=== PATIENT | male | born 1950 | race Caucasian/White ===

== ENCOUNTER 2023-05-01 07:31 | Outpatient (CLI) | payer MEDICARE, SELFPAY ==
--- NOTE | ~2023-05-01 | XR_ITS ---
XR abdomen/kub 1V DATE: 05/01/2023 07:54 INDICATION: Gross hematuria TECHNIQUE: 2 supine AP views COMPARISON: 05/01/2023 CT abdomen pelvis noncontrast examination FINDINGS: There is no evidence of bowel obstruction. No urinary tract calcifications are detected. Th e psoas shadows are intact. No visceromegaly is identified. There is very severe osteoarthritic change at the left hip with obliteration of joint space and sever e hypertrophic spurring of the acetabulum and femoral head. Moderately prominent right hip osteoarthr itis. IMPRESSION: Bilateral hip osteoarthritis, particularly severe on the left Nonspecific abdomen Reviewed, dictated and finalized at [facility]. Reviewed, dictated and finalized at location B.
--- NOTE | ~2023-05-01 | CT_ITS ---
EXAMINATION: CT abdomen pelvis wo/w con DATE: 05/01/2023 08:31 INDICATION: Gross hematuria TECHNIQUE: Computed tomography (CT) of the abdomen and pelvis was performed without and subsequently with 130 CC Omnipaque 350 intravenous contrast. Automated exposure control and iterative reconstructi on technique were employed. Exam dose: 2249.23 mGy-cm total exam DLP. COMPARISON: 05/01/2023 KUB FINDINGS: Left lower lobe calcified pulmonary granuloma, calcified right hilar node and multiple calc ified hepatic and splenic granulomas consistent with old granulomatous disease. Peripherally calcified approximately 2.6 cm gallstone. Additional stones and/or sludge are noted in t he gallbladder. No gallbladder wall thickening or pericholecystic fluid or fat stranding is noted. No bile duct or pancreatic duct dilatation. There is minimal punctate calcification of the uncinate pro cess of the pancreas which may be due to chronic pancreatitis. No hepatic, splenic, pancreatic, adrenal or renal space-occupying mass lesion is detected. A few very small renal probable cysts are suggested. Normal morphology of the adrenal glands. No urinary tract calculus or hydroureteronephrosis. There is asymmetric soft tissue thickening of the right anterolateral urinary bladder wall, measuring up to 9 mm depth. Cystoscopic evaluation in the biopsy are suggested, particularly with a history of gross hematuria. There is prostate enlargement. Septated prominent right hydrocele. There is atherosclerotic calcification but normal caliber of the abdominal aorta. There are atheroscl erotic calcifications at the origins of the celiac, superior mesenteric and right renal arteries. The re are 2 left renal arteries originating from the abdominal aorta. No intraperitoneal or retroperitoneal or pelvic mass lesion or adenopathy or ascites. Normal appendix. There is diverticulosis of the colon, primarily in the sigmoid area; no CT evidence of diverticulitis . There is a prominent amount of fecal material throughout the rectum and colon but no bowel obstruct ion, bowel wall thickening, pneumatosis or intraperitoneal free air. Moderate right and very severe left hip osteoarthritis. No suspicious osteolytic or osteoblastic lesions are noted. IMPRESSION: Asymmetric soft tissue thickening of the urinary bladder wall anterolaterally on the rig ht; consider cystoscopy with biopsy as clinically appropriate Prostate enlargement Cholelithiasis Minimal pancreatic calcification, possibly due to mild chronic pancreatitis Diverticulosis of the colon; no evidence of diverticulitis Normal appendix Bilateral hip osteoarthritis, particularly severe on the left Septated right hydrocele Reviewed, dictated and finalized at [facility]. Reviewed, dictated and finalized at location B. IMPRESSION: Asymmetric soft tissue thickening of the urinary bladder wall ante rolaterally on the right; consider cystoscopy with biopsy as clinically appropr iate Prostate enlargement Cholelithiasis Minimal pancreatic calcification, possibly due to mild chronic pancreatitis Diverticulosis of the colon; no evidence of diverticulitis Normal appendix Bilateral hip osteoarthritis, particularly severe on the left Septated right hydrocele
[2023-05-01 08:09] LABS: Estimated Glomerular Filt Rate > 60
== END 2023-05-01 07:32 | disposition home or self-care (01) ==
PROVIDERS: PCP Internal Medicine; Visit Provider Urology
DX: R31.0 Gross hematuria (principal); N40.0 Benign prostatic hyperplasia without lower urinary tract symptoms; K80.20 Calculus of gallbladder without cholecystitis without obstruction; K57.30 Diverticulosis of large intestine without perforation or abscess without bleeding; M16.0 Bilateral primary osteoarthritis of hip; N43.3 Hydrocele, unspecified
CPT/HCPCS: 74018; 74178; Q9967

== ENCOUNTER 2023-11-06 07:57 | Outpatient (CLI) | payer MEDICARE, SELFPAY ==
[2023-11-06 08:34] LABS: Anion Gap 10 mmol/L (4-12); Blood Urea Nitrogen 15 mg/dL (9-20); Calcium 9.2 mg/dL (8.4-10.2); Carbon Dioxide 23 mmol/L (22-30); Chloride 106 mmol/L (98-107); Estimated Glomerular Filt Rate > 60; Glucose 162 mg/dL (65-110); Potassium 4.6 mmol/L (3.4-5.0); Sodium 139 mmol/L (137-145)
== END 2023-11-06 07:58 | disposition home or self-care (01) ==
LOC: ANHSURGERY 08:02
PROVIDERS: Anesthesiology; PCP Internal Medicine; Visit Provider Urology
DX: Z01.818 Encounter for other preprocedural examination (principal); E11.9 Type 2 diabetes mellitus without complications; R97.20 Elevated prostate specific antigen [PSA]
CPT/HCPCS: 36415; 80048; 87086

== ENCOUNTER 2023-11-14 02:08 | Day surgery (SDC) | payer MEDICARE, SELFPAY ==
[2023-11-02 11:25] VITALS: BMI 33.2
--- NOTE | 2023-11-02 11:51 | PC.NURSE ---
Report to the Outpatient Waiting Room, entrance under the green pavilion located off [facility], at time __7:15AM on date ___11/14/23____. Planned Procedure Time: __9:15AM . Time changes happen often and if your time is changed the preop area will call you the afternoon before. - You and your visitor will be asked to self-screen and do not enter if you have any COVID symptoms. - A mask is optional within the hospital at this time. Patients may have clear liquids (water, carbonated beverages, clear teas, apple juice) until 3 hours prior to surgery with a maximum of 20 ounces. - No food from midnight until time of surgery. Take the following medications with a SIP of water the morning of surgery: ___AMLODIPINE DO NOT STOP ANY OF YOUR OTHER PRESCRIPTION MEDICATIONS PRIOR TO SURGERY ?EXCEPT THE FOLLOWING Medications to discontinue per physician ____HOLD PLAVIX, ASPIRIN & FISH OIL 7 DAYS PRE-OP PER DR CHEN- LAST DOSE 11/06/23 Please no make-up, nail english, hairspray, perfume, deodorant, or body powder the day of surgery. No jewelry (including any body piercings) or valuables the day of surgery, leave them at home. Please take a shower or bath the night before, or the morning of, surgery with an antibacterial soap. Wear comfortable, loose fitting clothing. - Jewelry must be removed prior to entering the operating room. Rings and piercings that are not removed may be cut off. - The hospital will not accept responsibility for valuables. - Please leave all valuables, including medications, at home the day of surgery. If you are going home after surgery, a licensed driver helper must drive you home. - NO public transportation without another adult if you receive anesthesia. - We recommend that an adult stay with you for 24 hours following discharge. - We also recommend that you do not drive, make important decision, drink alcoholic beverages, or take any drugs that were not prescribed by your health care provider for at least 24 hours after your discharge time. Follow any additional instructions given to you from your surgeon. If you or anyone in your household have experienced Covid symptoms in the past week, please notify your surgeon or the nurse liaison at the phone number below for possible testing. Telephone instructions given to ___PATIENT and asked if any additional questions and then verbalized understanding. Patient advised to call surgeon office or pre surgery nurse liaison [phone] if any additional questions.
[2023-11-14 06:43] VITALS: BP 178/78; PULSE 60; RESP 18; TEMP 36.1; O2SAT 98
[2023-11-14 07:12] LABS: Glucose Point of Care 190 mg/dl (65-105)
--- NOTE | 2023-11-14 07:16 | WPDHPUPDATE1 ---
History and Physical Update Update Date/Time: 11/14/23 07:16 History and Physical has been reviewed, including an updated exam of the patient. There are NO changes in the patient's condition. Risks, benefits, and alternatives have been discussed and questions answered. Patient agrees to proceed with procedure. Proceed with uronav us and prostate biopsy
--- NOTE | 2023-11-14 07:20 | PM.IMHP ---
H&P: HPI History of Present Illness Date/Time: 11/14/23 07:20 Chief Complaint: elevated psa Narrative: 73 yr old male with elevated psa. Review of Systems Review of Systems: All systems reviewed & are unremarkable except as noted in HPI and below [facility]LY [facility] Social History Social History Smoking packs per day: 4 Smoking cigarettes per day: 80.0 Years smoked: 30 Smoking pack-years: 120.00 Smoking status: Former smoker Tobacco type: cigarettes Smoking end date: 01/01/08 Alcohol intake: former Alcohol use details: QUIT 2010 AFTER HAVING A CVA Living arrangements: other Additional living arrangements comments: GIRLFRIEND Spiritual care concerns: No Meds Home Medications and Allergies Home Medications Medication Instructions Recorded Confirmed Type amlodipine 5 mg tablet 5 mg PO QAM 11/02/23 11/14/23 History aspirin 81 mg tablet,delayed 81 mg PO DAILY 11/02/23 11/14/23 History release clopidogrel 75 mg tablet 75 mg PO QAM 11/02/23 11/14/23 History ezetimibe 10 mg tablet 10 mg PO QAM 11/02/23 11/14/23 History glimepiride 2 mg tablet 2 mg PO QAM 11/02/23 11/14/23 History lisinopril 40 mg tablet 40 mg PO QAM 11/02/23 11/14/23 History metformin 500 mg tablet,extended 1,000 mg PO QAM 11/02/23 11/14/23 History release 24 hr omega 4-msk-jys-fish oil 1,000 mg 1 cap PO DAILY 11/02/23 11/14/23 History (120 mg-180 mg) capsule (Fish Oil) simvastatin 20 mg tablet 20 mg PO DAILY 11/02/23 11/14/23 History Allergies Allergy/AdvReac Type Severity Reaction Status Date / Time No Known Allergies Allergy Verified 11/14/23 07:18 Exam Const: General: cooperative Resp: Effort & Inspection: normal respiratory effort Cardio: Rate: regular rate Rhythm: regular rhythm Assessment and Plan Assessment and plan (1) Elevated PSA: Code(s): R97.20 - Elevated prostate specific antigen [PSA] Status: Acute Assessment and Plan: Proceed with uronav us and prostate biopsy
--- NOTE | 2023-11-14 08:01 | P.PNAN_ITS ---
Anes - Initial Pre Proc Eval Procedure: Operation Date: 11/14/23 08:30 Proposed Procedures p Trans Rectal Ultrasound Fusion Guided Prostate Biopsy - Sukumar Sosa MD Date/Time: 11/14/23 08:01 Surgeon: Sukumar Sosa MD Pre Op Diagnosis: elevated PSA Patient Data Age: 73 Gender: M Height: 1.75 m Weight: 101 kg Last Vital Signs Temp 97.0 F L 11/14/23 06:43 Pulse 60 11/14/23 06:43 Resp 18 11/14/23 06:43 BP 178/78 H 11/14/23 06:43 Pulse Ox 98 11/14/23 06:43 O2 Del Method Room Air 11/14/23 06:43 Allergies Allergy/AdvReac Type Severity Reaction Status Date / Time No Known Allergies Allergy Verified 11/14/23 07:18 Home Medications Medication Instructions Recorded Confirmed Type amlodipine 5 mg tablet 5 mg PO QAM 11/02/23 11/14/23 History aspirin 81 mg tablet,delayed 81 mg PO DAILY 11/02/23 11/14/23 History release clopidogrel 75 mg tablet 75 mg PO QAM 11/02/23 11/14/23 History ezetimibe 10 mg tablet 10 mg PO QAM 11/02/23 11/14/23 History glimepiride 2 mg tablet 2 mg PO QAM 11/02/23 11/14/23 History lisinopril 40 mg tablet 40 mg PO QAM 11/02/23 11/14/23 History metformin 500 mg tablet,extended 1,000 mg PO QAM 11/02/23 11/14/23 History release 24 hr omega 6-zhf-xav-fish oil 1,000 mg 1 cap PO DAILY 11/02/23 11/14/23 History (120 mg-180 mg) capsule (Fish Oil) simvastatin 20 mg tablet 20 mg PO DAILY 11/02/23 11/14/23 History Laboratory Tests 11/14/23 07:07 POC Capillary Glucose 190 H mg/dl (65-105) Patient hx anesthesia problems: none Family hx anesthesia problems: none Results Review: All pre-operative results and documents have been reviewed as part of the pre- operative evaluation. PMFSH Social History Social History Smoking packs per day: 4 Smoking cigarettes per day: 80.0 Years smoked: 30 Smoking pack-years: 120.00 Smoking status: Former smoker Tobacco type: cigarettes Smoking end date: 01/01/08 Alcohol intake: former Alcohol use details: QUIT 2010 AFTER HAVING A CVA Living arrangements: other Additional living arrangements comments: GIRLFRIEND Spiritual care concerns: No Anes - Eval Final PreProcedure Day of Procedure 11/14/23 08:01 Patient weight: normal Heart: regular rate and rhythm Lungs: clear to auscultation Airway: Mallampati scale and special considerations (Missing upper teeth, lower w several missing. ) Neurological: alert and oriented Last oral intake: >/= 8 hours ASA classification: III Emergent: no Anesthetic plan: proceed Anesthesia type and monitoring: general GIVS and standard monitoring Results Review: All pre-operative results and documents have been reviewed as part of the pre- operative evaluation. Informed Consent: The patient's anesthetic plan and its attendant risks and benefits were discussed with the patient/family/POA. Questions were solicited and answers provided to the satisfaction of the patient/family/POA.
[2023-11-14] MEDS: ceFAZolin 2 GM/D5W 50 ML 2 GM/50 ML BAG IVPB (08:26)
--- NOTE | 2023-11-14 08:54 | W.PM.PROC2 ---
Procedure Note - Detailed Date of Procedure 11/14/23 Pre-op Diagnosis elevated PSA Post-op Diagnosis Same Procedure Performed Uronav us and prostate biopsy Surgeon Sukumar Sosa MD Anesthesia MAC Description of Procedure Patient is taken the operative suite correctly identified. He was placed in the lateral decubitus position and IV sedation was given. Transrectal ultrasound was then performed in the MRI image was fused to the ultrasound machine. Two regions of interest were identified. Three cores were taken from each region. Twelve standard core biopsy was then performed. Patient tolerated procedure well without any complications and was taken recovery stable condition. He is to call for path results in 1 week. Estimated Blood Loss 0 Drains No Packing No Pathology Yes Complications No immediate complications Condition Stable Disposition PACU
[2023-11-14 08:59] VITALS: BP 125/55; PULSE 55; RESP 12; O2SAT 97
[2023-11-14 09:08] LABS: Glucose Point of Care 168 mg/dl (65-105)
[2023-11-14 09:28] VITALS: BP 159/72; PULSE 51; RESP 16
== END 2023-11-14 09:35 | disposition home or self-care (01) ==
PROVIDERS: PCP Internal Medicine; Visit Provider Urology
PROC: (CPT 55700; principal; 2023-11-14 08:30)
DX: C61 Malignant neoplasm of prostate (principal); Z79.82 Long term (current) use of aspirin; Z79.02 Long term (current) use of antithrombotics/antiplatelets; Z79.84 Long term (current) use of oral hypoglycemic drugs; Z87.891 Personal history of nicotine dependence; Z86.73 Personal history of transient ischemic attack (TIA), and cerebral infarction without residual deficits
CPT/HCPCS: 76872; 55700; 36415; 80048; 82948; 87086; G0416; J0690; J2704; J3010

== ENCOUNTER 2023-11-22 16:57 | Inpatient (IN) | payer MEDICARE, SELFPAY ==
--- NOTE | ~2023-11-22 | XR_ITS ---
EXAMINATION: XR chest 1V portable DATE: 11/22/2023 17:31 INDICATION: Weakness TECHNIQUE: frontal view of the chest was obtained. COMPARISON: None FINDINGS: The lungs are clear with no focal airspace opacities, pulmonary edema, pleural effusion or pneumothor ax. The cardiomediastinal silhouette is normal. Moderate to severe bilateral chronic clavicular osteo arthritis. IMPRESSION: 1. No acute cardiopulmonary disease. Reviewed, dictated and finalized at location A.
--- NOTE | ~2023-11-22 | CT_ITS ---
EXAMINATION: CT abdomen pelvis wo con DATE: 11/22/2023 21:00 INDICATION: Pyelonephritis TECHNIQUE: Computed tomography (CT) of the abdomen and pelvis was performed without intravenous contr ast. Automated exposure control and iterative reconstruction technique were employed. The dose-length product was 869.29 mGy-cm. COMPARISON: 05/01/2023 FINDINGS: Calcified nodules in the left lower lobe along with several scattered hepatic and splenic calcific le sions consistent with old granulomatous disease. Heart size is normal. Atherosclerotic coronary arter y calcifications. No pericardial or pleural effusion. Large calcified gallstone within the nondilated gallbladder. Pancreas and bilateral adrenal glands are normal. Bilateral kidneys and ureters are nor mal with no urolithiasis or hydronephrosis. There is relatively symmetric moderate bilateral perineph shilpa stranding. Bladder is normal. Prostatomegaly measuring 5.7 x 4.3 cm. There is mild stranding and haziness to the fat surrounding the bladder, prostate and bilateral seminal vesicles. There is modera te diverticulosis with sigmoid colon predominance and without adjacent inflammatory stranding to sugg est diverticulitis. Small bowel and appendix are normal. No free intraperitoneal gas or fluid. No pat hologically enlarged abdominal or pelvic lymphadenopathy. Advanced left and mild to moderate right hi p osteoarthritis. IMPRESSION: 1. Moderate bilateral perinephric stranding with additional stranding in the pelvis around the bladde r, enlarged prostate and bilateral seminal vesicles suggestive of urinary tract infection with potent ial cystitis, prostatitis and/or pyelonephritis. 2. Cholelithiasis. Reviewed, dictated and finalized at location A. IMPRESSION: 1. Moderate bilateral perinephric stranding with additional stranding in the pe lvis around the bladder, enlarged prostate and bilateral seminal vesicles sugge stive of urinary tract infection with potential cystitis, prostatitis and/or py elonephritis. 2. Cholelithiasis.
[2023-11-22 16:58] VITALS: BP 118/55; PULSE 78; RESP 18; TEMP 37.3; O2SAT 96
[2023-11-22 17:12] VITALS: BP 142/58; PULSE 77; RESP 32; O2SAT 97
--- NOTE | 2023-11-22 17:13 | ECG_ITS ---
SEE SCANNED COPY FOR CONFIRMED REPORT MTDD
--- NOTE | 2023-11-22 17:15 | PC.NURSE ---
c/o generalized weakness ans incontinence. Has had CVA in past and has weakness to left side.
[2023-11-22 17:17] VITALS: BP 127/50; PULSE 73; RESP 32; O2SAT 97
[2023-11-22 17:50] VITALS: BP 129/52; PULSE 75; RESP 32; TEMP 38.8; O2SAT 97
[2023-11-22] MEDS: ACETAMINOPHEN 500 MG TABLET 1000 MG PO (17:57)
[2023-11-22] MEDS: SODIUM CHLORIDE 0.9% IV 2,000 ML 999 ML IV CONT (17:58)
[2023-11-22 18:01] LABS: Basophils Percent Auto 0.3 % (0.2-1.2); Hematocrit 31.6 % (42.0-52.0); Hemoglobin 10.7 g/dL (14.0-18.0); Immature Granulocyte Absolute 0.19 K/mm3 (0.00-0.031); Immature Granulocyte Percent A 1.3 % (0-0.5); Lymphocytes Absolute Auto 0.61 K/mm3 (0.9-3.2); Lymphocytes Percent Auto 4.3 % (18.3-44.2); Mean Corpuscular HGB Conc 33.9 g/dl (32-36); Mean Corpuscular Hemoglobin 30.7 pg (26-34); Mean Corpuscular Volume 90.8 fl (80-100); Mean Platelet Volume 10.3 fl (7.4-10.4); Monocytes Absolute Auto 1.2 K/mm3 (0.1-0.6); Monocytes Percent Auto 8.7 % (2.6-8.5); Neutrophils Absolute Auto 12.1 K/mm3 (1.3-6.7); Neutrophils Percent Auto 85.4 % (45.5-73.1); Platelet Count Result 245 k/mm3 (150-375); Red Blood Count 3.48 M/mm3 (4.6-6.20); Red Cell Distribution Width 12.1 % (11.5-14.5); White Blood Count 14.2 K/mm3 (4.5-10.0)
[2023-11-22 18:06] LABS: Alanine Aminotransferase 22 U/L (6-50); Albumin Level 3.6 g/dL (3.5-5.1); Alkaline Phosphatase 99 U/L (38-126); Anion Gap 11 mmol/L (4-12); Aspartate Amino Transferase 33 U/L (17-59); Bilirubin,Total 0.6 mg/dL (0.2-1.3); Blood Urea Nitrogen 37 mg/dL (9-20); Calcium 8.2 mg/dL (8.4-10.2); Carbon Dioxide 15 mmol/L (22-30); Chloride 103 mmol/L (98-107); Estimated CRCL calculation 37 ml/min; Estimated Glomerular Filt Rate 33; Glucose 220 mg/dL (65-110); Potassium 4.5 mmol/L (3.4-5.0); Sodium 129 mmol/L (137-145)
[2023-11-22 18:25] LABS: Appearance Urine Turbid (Clear); Bacteria Urine 4+ /hpf; Bilirubin Urine Negative (Negative); Blood Urine 2+ (Negative); Color Urine Yellow (Yellow); Glucose Urine UA Negative (Negative); Ketones Urine Trace mg/dL (Negative); Leukocyte Esterase Ur 3+ LEU/UL (Negative); Need Manual Microscopic Reviewed; Nitrate Urine Negative (Negative); Non Pathogenic Casts >20; Protein Urine 2+ mg/dL (Negative); RBC Urine 0-2 /hpf (0-2); Specific Grav Ur 1.018 (1.001-1.035); Squamous Epithelial Cell Urine Occasional /hpf (Few); WBC Urine >100 /hpf (0-3); pH Urine 5.5 (5.0-9.0)
--- NOTE | 2023-11-22 18:41 | ED.GENADULT ---
HPI - General Adult General Chief complaint: Weakness Stated complaint: weak and unsteady Time Seen by Provider: 11/22/23 17:27 History of Present Illness HPI narrative: This is a 73-year-old male presenting ED with chief complaint of weakness. The patient himself has no complaints 1 is quite stoic. His says that he has been more weak than usual. He has been wetting himself has been unable to stand up from his arm chair without assistance. He was recently diagnosed with prostate cancer and had the biopsy performed last week Related Data Home Medications Medication Instructions Recorded Confirmed amlodipine 5 mg tablet 5 mg PO QAM 11/02/23 11/14/23 aspirin 81 mg tablet,delayed 81 mg PO DAILY 11/02/23 11/14/23 release clopidogrel 75 mg tablet 75 mg PO QAM 11/02/23 11/14/23 ezetimibe 10 mg tablet 10 mg PO QAM 11/02/23 11/14/23 glimepiride 2 mg tablet 2 mg PO QAM 11/02/23 11/14/23 lisinopril 40 mg tablet 40 mg PO QAM 11/02/23 11/14/23 metformin 500 mg tablet,extended 1,000 mg PO QAM 11/02/23 11/14/23 release 24 hr omega 6-xrl-jjh-fish oil 1,000 mg 1 cap PO DAILY 11/02/23 11/14/23 (120 mg-180 mg) capsule (Fish Oil) simvastatin 20 mg tablet 20 mg PO DAILY 11/02/23 11/14/23 Allergies Allergy/AdvReac Type Severity Reaction Status Date / Time No Known Allergies Allergy Verified 11/14/23 07:18 [facility] Social History Social History Smoking packs per day: 4 Smoking cigarettes per day: 80.0 Years smoked: 30 Smoking pack-years: 120.00 Smoking status: Former smoker Tobacco type: cigarettes Smoking end date: 01/01/08 Alcohol intake: former Alcohol use details: QUIT 2010 AFTER HAVING A CVA Living arrangements: other Additional living arrangements comments: [facility]IRLFRIEND Spiritual care concerns: No Exam Narrative: APPEARANCE: A&O x2 Head: atraumatic. EYES: EOMI, NOSE: Atraumatic NECK: Trachea midline RESPIRATORY: No increased rate of breathing, end-expiratory wheezes CARDIOVASCULAR: RRR, no peripheral edema ABDOMINAL: Non-distended soft nontender with no CVA tenderness MUSCULOSKELETAl: No obvious deformities NEURO: Alert. Moving 4/4 extremities SKIN:: Warm to touch PSYCHIATRIC: Normal affect Course Vital Signs Vital signs: Vital Signs Temperature 99.2 F 11/22/23 16:58 Pulse Rate 78 11/22/23 16:58 Respiratory Rate 18 11/22/23 16:58 Blood Pressure 118/55 L 11/22/23 16:58 Pulse Oximetry 96 11/22/23 16:58 Oxygen Delivery Room Air 11/22/23 16:58 Temperature 101.9 F H 11/22/23 17:50 Pulse Rate 75 11/22/23 17:50 Respiratory Rate 32 H 11/22/23 17:50 Blood Pressure 129/52 L 11/22/23 17:50 Pulse Oximetry 97 11/22/23 17:50 Oxygen Delivery Room Air 11/22/23 16:58 Medical Decision Making MDM Narrative Medical decision making narrative: -Course: Says 73-year-old male presenting with weakness confusion and urinary incontinence. Febrile on arrival. Urine indicative infection. CT showed perinephric stranding concerning for pyelonephritis. Started on ceftriaxone and given fluid resuscitation 30cc/kg Patient also has acute kidney injury. Patient will be admitted hospital for further management. -DDX includes but is not limited to: UTI, pyelonephritis, sepsis, dehydration, pneumonia, viral syndrome -Co-morbidities complicating care: Prostate cancer -Independent interpretation of studies: White count 14.2. Metabolic panel shows sodium of 129. Mildly acidotic BUN 37, creatinine 2.0. Baseline of 1.1. Urine with greater than 100 white blood cells per high-power field. Viral swabs negative -Discussion of Management/Consultants: Iman - Hospitalist -Interventions: 3 L normal saline, Ceftriaxone -Shared decision making / Disposition: Admitted Vital Signs Vital Signs: Vital Signs Temperature 99.2 F 11/22/23 16:58 Pulse Rate 78 11/22/23 16:58 Respiratory Rate 18 11/22/23
[2023-11-22 18:54] LABS: Influenza A QL RT-PCR Negative (Negative); Influenza B QL RT-PCR Negative (Negative); RSV RNA, RT-PCR Negative (Negative); SARS-CoV-2 RNA PCR Negative (Negative)
[2023-11-22 18:57] LABS: Add Urine Microscopic? NO
[2023-11-22 19:09] LABS: Lactic Acid Reflex 0.9 mmol/L (0.7-2.0)
[2023-11-22] MEDS: SODIUM CHLORIDE 0.9% IV 1,000 ML 999 ML IV CONT (19:50)
--- NOTE | 2023-11-22 21:43 | PM.IMHP ---
H&P: HPI History of Present Illness Date/Time: 11/22/23 21:43 Chief Complaint: urinary urgency Narrative: patient is 73-year-old male with history of diabetes, hypertension, hyperlipidemia currently on aspirin and Plavix comes to hospital complaining of generalized weakness urgency frequency urination. Patient recently had a prostate cancer diagnosis after he went to the prostate biopsy. No no fever no chills no headaches or dizziness no palpitation no no nausea vomiting or diarrhea. Patient also complains of left flank pain grossly getting worse Review of Systems Review of Systems: All systems reviewed & are unremarkable except as noted in HPI and below PMFSH Social History Social History Smoking packs per day: 4 Smoking cigarettes per day: 80.0 Years smoked: 30 Smoking pack-years: 120.00 Smoking status: Former smoker Tobacco type: cigarettes Smoking end date: 01/01/08 Alcohol intake: former Alcohol use details: QUIT 2010 AFTER HAVING A CVA Living arrangements: other Additional living arrangements comments: GIRLFRIEND Spiritual care concerns: No Meds Home Medications and Allergies Home Medications Medication Instructions Recorded Confirmed Type amlodipine 5 mg tablet 5 mg PO QAM 11/02/23 11/14/23 History aspirin 81 mg tablet,delayed 81 mg PO DAILY 11/02/23 11/14/23 History release clopidogrel 75 mg tablet 75 mg PO QAM 11/02/23 11/14/23 History ezetimibe 10 mg tablet 10 mg PO QAM 11/02/23 11/14/23 History glimepiride 2 mg tablet 2 mg PO QAM 11/02/23 11/14/23 History lisinopril 40 mg tablet 40 mg PO QAM 11/02/23 11/14/23 History metformin 500 mg tablet,extended 1,000 mg PO QAM 11/02/23 11/14/23 History release 24 hr omega 8-ryo-fac-fish oil 1,000 mg 1 cap PO DAILY 11/02/23 11/14/23 History (120 mg-180 mg) capsule (Fish Oil) simvastatin 20 mg tablet 20 mg PO DAILY 11/02/23 11/14/23 History Allergies Allergy/AdvReac Type Severity Reaction Status Date / Time No Known Allergies Allergy Verified 11/14/23 07:18 Vital Signs Vital Signs - 24 hr 11/22/23 16:58 11/22/23 17:50 Temperature 37.3 C 38.8 C H Pulse Rate 78 75 Respiratory Rate 18 32 H Blood Pressure 118/55 L 129/52 L Pulse Oximetry 96 97 Oxygen Delivery Room Air Exam Narrative: GENERAL: Well appearing, no acute distress. HEAD: Normocephalic, atraumatic. NECK: Supple. No adenopathy, no masses. RESPIRATORY: respirations nonlabored. , no rales, wheezing. CARDIOVASCULAR: Regular rate and rhythm without murmurs, . Peripheral pulses 2+ and equal bilaterally. ABDOMINAL: Soft, nontender, nondistended, no hepatosplenomegaly. Normoactive BS. MUSCULOSKELETAL: no Epigastric and no hypochondrial tenderness SKIN: Warm, dry, NEURO: A&O X3. Moves all extremities H&P: Results Labs Labs: Short CBC 11/22/23 Range/Units 17:50 WBC 14.2 H (4.5-10.0) K/mm3 Hgb 10.7 L (14.0-18.0) g/dL Hct 31.6 L (42.0-52.0) % Plt Count 245 (150-375) k/mm3 BMP 11/22/23 17:50 Sodium 129 L Potassium 4.5 Chloride 103 Carbon Dioxide 15 L BUN 37 H D Creatinine 2.00 H Glucose 220 H Calcium 8.2 L Liver Function 11/22/23 Range/Units 17:50 Total Bilirubin 0.6 (0.2-1.3) mg/dL AST 33 (17-59) U/L ALT 22 (6-50) U/L Alkaline Phosphatase 99 (38-126) U/L Albumin 3.6 (3.5-5.1) g/dL Urine 11/22/23 Range/Units 17:50 Urine Color Yellow (Yellow) Urine Appearance Turbid H (Clear) Urine pH 5.5 (5.0-9.0) Ur Specific [place] 1.018 (1.001-1.035) Urine Protein 2+ H (Negative) mg/dL Urine Glucose (UA) Negative (Negative) mg/dL Assessment and Plan Assessment and plan (1) Acute pyelonephritis: Code(s): N10 - Acute pyelonephritis Status: Acute (2) Acute kidney injury: Code(s): N17.9 - Acute kidney failure, unspecified Status: Acute (3) Prostate cancer:
[2023-11-22] MEDS: LACTATED RINGERS 1,000 ML 125 ML IV CONT (22:01)
[2023-11-22 22:06] VITALS: BP 125/65; PULSE 56; RESP 21; TEMP 36.5; O2SAT 99
[2023-11-22 22:35] VITALS: BP 134/62; PULSE 55; RESP 18; TEMP 35.6; O2SAT 98
--- NOTE | 2023-11-22 22:42 | ADMGEN ---
This patient, Max Ochoa, was admitted to [facility] Surg Room 322-01. Patient/family oriented to hospital policies and general routines including ID bracelet, bed and alarms, visiting hours, pain management, procedures, bathroom and other care routines, personal items, smoking policy, room service/diet, and visiting hours. Information on how to activate the Rapid Response Team has been discussed. Patient/Family are encouraged to report perceived risks to care and to ask questions if they do not understand what they are told or what they should do.
[2023-11-23 06:00] VITALS: BP 135/60; PULSE 72; RESP 22; TEMP 37.4; O2SAT 98
[2023-11-23 06:18] LABS: Basophils Percent Auto 0.3 % (0.2-1.2); Eosinophils Percent Auto 0.1 % (0-4.4); Hematocrit 31.3 % (42.0-52.0); Hemoglobin 10.2 g/dL (14.0-18.0); Immature Granulocyte Absolute 0.14 K/mm3 (0.00-0.031); Immature Granulocyte Percent A 1.1 % (0-0.5); Lymphocytes Absolute Auto 0.67 K/mm3 (0.9-3.2); Lymphocytes Percent Auto 5.5 % (18.3-44.2); Mean Corpuscular HGB Conc 32.6 g/dl (32-36); Mean Corpuscular Hemoglobin 30.5 pg (26-34); Mean Corpuscular Volume 93.7 fl (80-100); Mean Platelet Volume 10.1 fl (7.4-10.4); Monocytes Absolute Auto 1.1 K/mm3 (0.1-0.6); Monocytes Percent Auto 8.8 % (2.6-8.5); Neutrophils Absolute Auto 10.3 K/mm3 (1.3-6.7); Neutrophils Percent Auto 84.2 % (45.5-73.1); Platelet Count Result 216 k/mm3 (150-375); Red Blood Count 3.34 M/mm3 (4.6-6.20); Red Cell Distribution Width 12.1 % (11.5-14.5); White Blood Count 12.2 K/mm3 (4.5-10.0)
[2023-11-23 06:22] LABS: Alanine Aminotransferase 21 U/L (6-50); Albumin Level 3.1 g/dL (3.5-5.1); Alkaline Phosphatase 85 U/L (38-126); Anion Gap 7 mmol/L (4-12); Aspartate Amino Transferase 36 U/L (17-59); Bilirubin,Total 0.4 mg/dL (0.2-1.3); Blood Urea Nitrogen 30 mg/dL (9-20); Calcium 7.8 mg/dL (8.4-10.2); Carbon Dioxide 18 mmol/L (22-30); Chloride 110 mmol/L (98-107); Estimated CRCL calculation 49 ml/min; Estimated Glomerular Filt Rate 46; Glucose 164 mg/dL (65-110); Potassium 4.1 mmol/L (3.4-5.0); Sodium 135 mmol/L (137-145)
[2023-11-23] MEDS: LACTATED RINGERS 1,000 ML 125 ML IV CONT ×2 (06:24→13:26)
[2023-11-23 07:54] VITALS: O2SAT 97
[2023-11-23 08:00] VITALS: O2SAT 97
[2023-11-23 08:11] LABS: Glucose Point of Care 146 mg/dl (65-105)
[2023-11-23] MEDS: ENOXAPARIN 40 MG/0.4 ML SYRINGE SUB-Q (08:30)
[2023-11-23] MEDS: PANTOPRAZOLE 40 MG TABLET PO (08:30)
[2023-11-23] MEDS: INSULIN ASPART (*BKC) 100 UNITS/ML SUB-Q ×2 (08:32→11:56)
[2023-11-23 09:45] LABS: Glucose Point of Care 235 mg/dl (65-105)
--- NOTE | 2023-11-23 11:13 | PM.IMPN ---
Progress Note: A&P Assessment and Plan (1) Acute pyelonephritis: Code(s): N10 - Acute pyelonephritis Status: Acute Assessment and Plan: -Continue Rocephin, increase dose 2g Q24 now that bacteremia is noted. (2) Bacteremia: Code(s): R78.81 - Bacteremia Status: Acute Assessment and Plan: -Gram negative bacilli noted in two sets of blood cultures, suspected urogenic source with findings of pyelonephritis. (3) Prostate cancer: Code(s): C61 - Malignant neoplasm of prostate Status: Acute Assessment and Plan: -Recently diagnosed earlier this month. He is awaiting a PSMA scan. He has been referred for radiation therapy (4) Acute kidney injury: Code(s): N17.9 - Acute kidney failure, unspecified Status: Acute Assessment and Plan: 11/22: -Admission creatinine 2.0 with estimated GFR 33, -morning labs creatinine 1.5 estimated GFR 46, still elevated above baseline creatinine 1.1 GFR greater than 60 -avoid nephrotoxins, hold lisinopril and metformin (5) Type 2 diabetes mellitus: Code(s): E11.9 - Type 2 diabetes mellitus without complications Status: Acute Assessment and Plan: -Fingerstick glucose ACHS with SSI, hold metformin due to WILLIAM, ok to restart glimepiride Time Spent With Patient Time with patient: Greater than 35 minutes Subjective Date/time seen: 11/23/23 11:13 Interval history: This is a 73-year-old male patient with a history of prior stroke admitted for weakness and urinary continence found of urinary tract infection. Admitted on IV antibiotics. History of recently diagnosed prostate cancer not yet undergoing treatment. Urology was consulted by the ER. Blood cultures returned with Gram-negative bacilli. Patient reports that he is feeling better. Consult PT and OT. Continue IV antibiotics. Review of Systems Review of Systems: All systems reviewed & are unremarkable except as noted in HPI and below Exam Narrative: General: Awake, alert, comfortable, no acute distress HEENT: Normocephalic, atraumatic, sclerae anicteric Respiratory: Normal respiratory effort, no accessory muscle use Abdomen: Nondistended, soft, nontender Skin: Normal coloration, warm and dry Neurologic: Left upper and lower extremity weakness which is chronic Psychiatric: Appropriate mood and affect, judgment and insight intact Objective Data Vital Signs Vital Signs: Vital Signs - 24 hr 11/22/23 16:58 11/22/23 17:50 11/22/23 17:12 Temperature 37.3 C 38.8 C H Pulse Rate 78 75 77 Respiratory Rate 18 32 H 32 H Blood Pressure 118/55 L 129/52 L 142/58 H Pulse Oximetry 96 97 97 Oxygen Delivery Room Air Fraction of Inspired Oxygen 11/22/23 17:17 11/22/23 22:06 11/22/23 22:35 Temperature 36.5 C 35.6 C L Pulse Rate 73 56 L 55 L Respiratory Rate 32 H 21 H 18 Blood Pressure 127/50 L 125/65 134/62 Pulse Oximetry 97 99 98 Oxygen Delivery Fraction of Inspired Oxygen 11/23/23 06:00 11/23/23 07:54 11/23/23 08:00 Temperature 37.4 C Pulse Rate 72 Respiratory Rate 22 H Blood Pressure 135/60 Pulse Oximetry 98 97 97 Oxygen Delivery Room Air Room Air Fraction of Inspired Oxygen 21 Intake/Output Intake/Output: Intake & Output 11/20/23 11/21/23 11/22/23 11/23/23 23:59 23:59 23:59 23:59 Intake Total 3050 1368 Output Total 1000 Balance 3050 368 Meds/Results Medications: Active Medications Generic Name Dose Route Start Last Admin Trade Name Freq PRN Reason Stop Dose Admin Hydrocodone Bitart/Acetaminophen 1 tab 11/22/23 21:39 Hydrocodone/Acetaminophen (*Crx) 5-325 Mg Tablet PO Q4H PRN Moderate Pain (4-6) Enoxaparin Sodium 40 mg 11/23/23 09:00 11/23/23 08:30 Enoxaparin 40 Mg/0.4 Ml Syringe SUB-Q 40 mg DAILY NUNO Administration Ceftriaxone Sodium 1 gm in 50 mls @ 100 mls/hr 11/23/23 20:00 Rocephin 1 Gm/Ns 50 Ml IVPB Q24H NUNO Lactated Ringer's 1,0
[2023-11-23 11:24] LABS: Glucose Point of Care 166 mg/dl (65-105)
[2023-11-23 12:07] VITALS: BMI 32.2
--- NOTE | 2023-11-23 12:35 | WPDURCON ---
Assessment and Plan Assessment and plan (1) Acute pyelonephritis: Code(s): N10 - Acute pyelonephritis Status: Acute Assessment and Plan: Finding consistent with acute pyelonephritis. No clinical findings to suggest prostatitis or seminal vesiculitis. Continue with empiric IV antibiotics while awaiting urine and blood culture results. No indication for acute urologic intervention at this time. (2) Prostate cancer: Code(s): C61 - Malignant neoplasm of prostate Status: Acute Assessment and Plan: Recently diagnosed earlier this month. He is awaiting a PSMA scan. He has been referred for radiation therapy Urology Consult Note HPI Date Seen: 11/23/23 Requesting Physician: Mike Valerio MD Primary Care Provider: Dunia Molina, Consult Narrative Narrative: Max Ochoa is a 73 year old male with recently diagnosed prostate cancer after undergoing prostate biopsy on 11/14/23 who is being seen in consultation for pyelonephritis. Patient is a fair historian and thus some information is supplemented by EMR. Presented to the emergency department on 11/22/2023 with complaints of weakness. On arrival, was febrile at 101.9?, additional vital signs were stable, WBC 14.2, creatinine 2.0, UA with 3+ leukocytes, negative nitrites, and >[address] of his abdomen/pelvis was performed which demonstrated moderate bilateral perinephric stranding with no stones or hydro, normal bladder with mild stranding and haziness surrounding the bladder, prostate, and bilateral seminal vesicles. At time of my evaluation, the patient is feeling improved. He reports that for the past couple of days prior to admission he was having a very weak, dribbling stream. This has already improved and he is voiding without difficulty. He denies any episodes of dysuria or hematuria. He denies pelvic or perineal pain. He denies suprapubic pain, flank pain, back pain, nausea, vomiting, fever, or chills. He has remained afebrile today. His white blood cell count has improved slightly to 12.2. His creatinine has improved to 1.5. Urine culture and blood cultures are pending at this time. Review of Systems Review of Systems: All systems reviewed & are unremarkable except as noted in HPI and below [facility] Social History Social History Smoking packs per day: 3 Smoking cigarettes per day: 60.0 Years smoked: 30 Smoking pack-years: 90.00 Smoking status: Former smoker Tobacco type: cigarettes Smoking end date: 01/01/08 Alcohol intake: never Alcohol use details: QUIT 2010 AFTER HAVING A CVA Substance use: never Do You Feel Safe in your Home?: Yes Lack of Transportation: No Lack of Food: Never True Current Housing: I Have Housing Concerned About Future Housing: No Difficulty Paying Gas/Electric Bills: No Difficulty Paying for Meds: No Currently Unemployed: No Education: Decline to Answer Difficulty w/ Childcare or Family Care: No Living arrangements: other Additional living arrangements comments: [facility] Spiritual care concerns: No Meds Home Medications and Allergies Home Medications Medication Instructions Recorded Confirmed Type amlodipine 5 mg tablet 5 mg PO QAM 11/02/23 11/22/23 History clopidogrel 75 mg tablet 75 mg PO QA 11/02/23 11/22/23 History ezetimibe 10 mg tablet 10 mg PO [facility] 11/02/23 11/22/23 History glimepiride 2 mg tablet 2 mg PO M 11/02/23 11/22/23 History lisinopril 40 mg tablet 40 mg PO QAM 11/02/23 11/22/23 History metformin 500 mg tablet,extended 1,000 mg PO QAM 11/02/23 11/22/23 History release 24 hr omega [id number]-[id number]-fish oil 1,000 mg 1 cap PO DAILY 11/02/23 11/22/23 History (120 mg-180 mg) capsule (Fish Oil) simvastatin 20 mg tablet 20 mg PO DAILY 11/02/23 11/22/23 History Allergies Allergy/AdvReac Type Severity Reaction Status Date / Time No Known Allergies Allergy Verified 0
[2023-11-23 14:00] VITALS: BP 167/66; PULSE 73; RESP 16; TEMP 37.7; O2SAT 97
[2023-11-23 15:18] VITALS: TEMP 37.2
[2023-11-23 15:21] LABS: Hemoglobin A1C 7.7 % (<5.7)
[2023-11-23 16:49] LABS: Glucose Point of Care 97 mg/dl (65-105)
[2023-11-23 20:04] VITALS: BP 131/51; PULSE 67; RESP 22; TEMP 37.5; O2SAT 96
[2023-11-23] MEDS: cefTRIAXone 2 GM/NS 100 ML 2 GM/100 ML BAG IVPB (20:18)
[2023-11-23 20:22] LABS: Glucose Point of Care 135 mg/dl (65-105)
[2023-11-24 06:00] VITALS: BP 120/59; PULSE 63; RESP 20; TEMP 36.3; O2SAT 97
[2023-11-24 07:53] LABS: Glucose Point of Care 108 mg/dl (65-105)
[2023-11-24 08:13] LABS: Basophils Percent Auto 0.3 % (0.2-1.2); Eosinophils Absolute Auto 0.1 K/mm3 (0-0.3); Immature Granulocyte Absolute 0.07 K/mm3 (0.00-0.031); Immature Granulocyte Percent A 0.8 % (0-0.5); Lymphocytes Absolute Auto 0.69 K/mm3 (0.9-3.2); Mean Corpuscular HGB Conc 33.3 g/dl (32-36); Mean Corpuscular Hemoglobin 31.1 pg (26-34); Mean Corpuscular Volume 93.2 fl (80-100); Mean Platelet Volume 10.5 fl (7.4-10.4); Monocytes Absolute Auto 0.9 K/mm3 (0.1-0.6); Neutrophils Absolute Auto 6.9 K/mm3 (1.3-6.7); Neutrophils Percent Auto 79.9 % (45.5-73.1); Platelet Count Result 209 k/mm3 (150-375); Red Blood Count 3.22 M/mm3 (4.6-6.20); Red Cell Distribution Width 12.3 % (11.5-14.5); White Blood Count 8.6 K/mm3 (4.5-10.0)
[2023-11-24 08:41] LABS: Anion Gap 7 mmol/L (4-12); Blood Urea Nitrogen 22 mg/dL (9-20); Calcium 7.9 mg/dL (8.4-10.2); Carbon Dioxide 15 mmol/L (22-30); Chloride 110 mmol/L (98-107); Estimated CRCL calculation 56 ml/min; Estimated Glomerular Filt Rate 54; Glucose 111 mg/dL (65-110); Phosphorus 3.2 mg/dL (2.5-4.5); Potassium 3.7 mmol/L (3.4-5.0); Sodium 132 mmol/L (137-145)
[2023-11-24] MEDS: EZETIMIBE 10 MG TABLET PO (08:57)
[2023-11-24] MEDS: OMEGA 3 POLYUNSAT FATTY ACIDS 1 GM CAP PO (08:57)
[2023-11-24] MEDS: CLOPIDOGREL BISULFATE 75 MG TABLET PO (08:57)
[2023-11-24] MEDS: amLODIPine BESYLATE 5 MG TABLET PO (08:58)
[2023-11-24] MEDS: SIMVASTATIN 20 MG TABLET PO (08:58)
[2023-11-24] MEDS: GLIMEPIRIDE 2 MG TABLET PO (08:58)
[2023-11-24] MEDS: PANTOPRAZOLE 40 MG TABLET PO (08:59)
[2023-11-24] MEDS: ENOXAPARIN 40 MG/0.4 ML SYRINGE SUB-Q (08:59)
[2023-11-24 11:31] LABS: Glucose Point of Care 174 mg/dl (65-105)
--- NOTE | 2023-11-24 12:07 | WPDUROPN2 ---
Progress Note: A&P Assessment and Plan (1) Acute pyelonephritis: Code(s): N10 - Acute pyelonephritis Status: Acute Assessment and Plan: Findings consistent with acute pyelonephritis. No clinical findings to suggest prostatitis or seminal vesiculitis. Continue with empiric IV antibiotics while awaiting final urine and blood culture results. No indication for acute urologic intervention. (2) Bacteremia: Code(s): R78.81 - Bacteremia Status: Acute Assessment and Plan: Secondary to above. Preliminary urine culture with growth of Gram-negative bacilli. (3) Prostate cancer: Code(s): C61 - Malignant neoplasm of prostate Status: Acute Assessment and Plan: Recently diagnosed earlier this month. He is awaiting a PSMA scan. He has been referred for radiation therapy Subjective Subjective Date/Time Seen: 11/24/23 12:07 Interval history: Feeling well today. No acute events overnight. is present at the bedside. He denies abdominal pain, flank pain, suprapubic pain, or pelvic pain. Complains of some back pain from lying in bed. Denies nausea, vomiting, fever, chills. Tolerating his diet. Preliminary urine culture with growth of E coli. Preliminary blood cultures with Gram-negative bacilli. White count remains normal at 8.6. No fevers. Review of Systems Review of Systems: All systems reviewed & are unremarkable except as noted in HPI and below Exam Narrative: General: Awake, alert, comfortable, no acute distress HEENT: Normocephalic, atraumatic, sclerae anicteric Respiratory: Normal respiratory effort, no accessory muscle use Abdomen: Nondistended, soft, nontender Skin: Normal coloration, warm and dry Neurologic: No focal neuro deficits noted Psychiatric: Appropriate mood and affect, judgment and insight intact Objective Data Vital Signs Vital Signs: Vital Signs - 24 hr 11/23/23 14:17 11/23/23 14:00 11/23/23 15:18 Temperature 99.9 F H 98.9 F Pulse Rate 73 Respiratory Rate 16 Blood Pressure 167/66 H Pulse Oximetry 97 Oxygen Delivery Room Air 11/23/23 20:04 11/24/23 06:00 11/24/23 09:09 Temperature 99.5 F 97.3 F L Pulse Rate 67 63 Respiratory Rate 22 H 20 Blood Pressure 131/51 L 120/59 L Pulse Oximetry 96 97 Oxygen Delivery Room Air 11/24/23 08:50 Temperature Pulse Rate Respiratory Rate Blood Pressure Pulse Oximetry Oxygen Delivery Room Air Intake/Output Intake/Output: Intake & Output 11/21/23 11/22/23 11/23/23 11/24/23 23:59 23:59 23:59 23:59 Intake Total 3050 2705.2 236 Output Total 1600 1000 Balance 3050 1105.2 -764 Meds/Results Medications: Active Medications Generic Name Dose Route Start Last Admin Trade Name Freq PRN Reason Stop Dose Admin Acetaminophen 650 mg 11/23/23 16:37 Acetaminophen 325 Mg Tablet PO Q4H PRN Pain 1-3 or Fever Hydrocodone Bitart/Acetaminophen 1 tab 11/22/23 21:39 Hydrocodone/Acetaminophen (*Crx) 5-325 Mg Tablet PO Q4H PRN Moderate Pain (4-6) Amlodipine Besylate 5 mg 11/24/23 09:00 11/24/23 08:58 Amlodipine Besylate 5 Mg Tablet PO 5 mg QAM NUNO Administration Clopidogrel Bisulfate 75 mg 11/24/23 09:00 11/24/23 08:57 Clopidogrel Bisulfate 75 Mg Tablet PO 75 mg QAM NUNO Administration Dextrose 12.5 gm 11/23/23 13:42 Dextrose 50% 25 Gm/50 Ml Syringe IV PUSH PRN PRN Hypoglycemia Protocol Ezetimibe 10 mg 11/24/23 09:00 11/24/23 08:57 Ezetimibe 10 Mg Tablet PO 10 mg QAM NUNO Administration Enoxaparin Sodium 40 mg 11/23/23 09:00 11/24/23 08:59 Enoxaparin 40 Mg/0.4 Ml Syringe SUB-Q 40 mg DAILY NUNO Administration Fish Oil 1 gm 11/24/23 09:00 11/24/23 08:57 [place] 3 Polyunsat Fatty Acids 1 Gm Cap PO 1 gm DAILY NUNO Administration Glimepiride 2 mg 11/24/23 08:00 11/24/23 08:58 Glimepiride 2 Mg Tablet PO 2 mg DAILY@0800 [facility] Ad
--- NOTE | 2023-11-24 13:03 | PM.IMPN ---
Progress Note: A&P Assessment and Plan (1) Acute pyelonephritis: Code(s): N10 - Acute pyelonephritis Status: Acute Assessment and Plan: -Continue Rocephin, increase dose 2g Q24 now that bacteremia is noted. -E coli identified in the urine, sensitivities pending (2) Bacteremia: Code(s): R78.81 - Bacteremia Status: Acute Assessment and Plan: -Gram negative bacilli noted in two sets of blood cultures, suspected urogenic source with findings of pyelonephritis. -E coli identified in the urine sensitivities pending (3) Prostate cancer: Code(s): C61 - Malignant neoplasm of prostate Status: Acute Assessment and Plan: -Recently diagnosed earlier this month. He is awaiting a PSMA scan. He has been referred for radiation therapy (4) Acute kidney injury: Code(s): N17.9 - Acute kidney failure, unspecified Status: Acute Assessment and Plan: 11/22: -Admission creatinine 2.0 with estimated GFR 33, -morning labs creatinine 1.5 estimated GFR 46, still elevated above baseline creatinine 1.1 GFR greater than 60 -avoid nephrotoxins, hold lisinopril and metformin 11/23: Creatinine 1.3 estimated GFR 54 (5) Type 2 diabetes mellitus: Code(s): E11.9 - Type 2 diabetes mellitus without complications Status: Acute Assessment and Plan: -Fingerstick glucose ACHS with SSI, hold metformin due to WILLIAM, ok to restart glimepiride (6) Hyponatremia: Code(s): E87.1 - Hypo-osmolality and hyponatremia Status: Acute Assessment and Plan: 11/23: -Likely due to pyelonephritis and bloodstream infection -Sodium 129 on admit, 135 yesterday and 132 this morning. Time Spent With Patient Time with patient: 25 - 35 minutes Subjective Date/time seen: 11/24/23 13:03 Interval history: Patient reports that he wants to go home, he reports that he is working well with therapy and has regained his strength. Patient is not pleased when I informed him that she bloodstream infection present and he will require repeat blood cultures to remain negative. E coli has been identified in the urine but no susceptibilities. He is on Rocephin 2 g Q 24. The repeat cultures have been drawn. Review of Systems Review of Systems: All systems reviewed & are unremarkable except as noted in HPI and below Exam Narrative: General: Awake, alert, comfortable, no acute distress HEENT: Normocephalic, atraumatic, sclerae anicteric Respiratory: Normal respiratory effort, no accessory muscle use Abdomen: Nondistended, soft, nontender Skin: Normal coloration, warm and dry Neurologic: Left upper and lower extremity weakness which is chronic Psychiatric: Appropriate mood and affect, judgment and insight intact Objective Data Vital Signs Vital Signs: Vital Signs - 24 hr 11/23/23 14:17 11/23/23 14:00 11/23/23 15:18 Temperature 37.7 C H 37.2 C Pulse Rate 73 Respiratory Rate 16 Blood Pressure 167/66 H Pulse Oximetry 97 Oxygen Delivery Room Air 11/23/23 20:04 11/24/23 06:00 11/24/23 09:09 Temperature 37.5 C 36.3 C L Pulse Rate 67 63 Respiratory Rate 22 H 20 Blood Pressure 131/51 L 120/59 L Pulse Oximetry 96 97 Oxygen Delivery Room Air 11/24/23 08:50 Temperature Pulse Rate Respiratory Rate Blood Pressure Pulse Oximetry Oxygen Delivery Room Air Intake/Output Intake/Output: Intake & Output 11/21/23 11/22/23 11/23/23 11/24/23 23:59 23:59 23:59 23:59 Intake Total 3050 2705.2 354 Output Total 1600 1000 Balance 3050 1105.2 -646 Meds/Results Medications: Active Medications Generic Name Dose Route Start Last Admin Trade Name Freq PRN Reason Stop Dose Admin Acetaminophen 650 mg 11/23/23 16:37 Acetaminophen 325 Mg Tablet PO Q4H PRN Pain 1-3 or Fever Hydrocodone Bitart/Acetaminophen 1 tab 11/22/23 21:39 Hydrocodone/Acetaminophen (*Crx) 5-325 Mg Tablet PO Q4H PRN Moderate Pain (
[2023-11-24 14:00] VITALS: BP 137/59; PULSE 53; RESP 18; TEMP 36.6; O2SAT 98
[2023-11-24 16:51] LABS: Glucose Point of Care 129 mg/dl (65-105)
--- NOTE | 2023-11-24 18:44 | PC.NURSE ---
On 11/24/23, the DOUGH CUTTER,Lila Laureano, provided care and [facility]. I have reviewed the DOUGH CUTTER's documentation and agree with the findings.
[2023-11-24] MEDS: cefTRIAXone 2 GM/NS 100 ML 2 GM/100 ML BAG IVPB (20:05)
[2023-11-24 20:31] LABS: Glucose Point of Care 122 mg/dl (65-105)
[2023-11-24 22:00] VITALS: BP 142/61; PULSE 62; RESP 16; TEMP 37.2; O2SAT 96
[2023-11-25 06:00] VITALS: BP 138/67; PULSE 74; RESP 20; TEMP 36.6; O2SAT 98
[2023-11-25 06:51] LABS: Basophils Percent Auto 0.4 % (0.2-1.2); Eosinophils Absolute Auto 0.2 K/mm3 (0-0.3); Eosinophils Percent Auto 2.2 % (0-4.4); Hematocrit 30.6 % (42.0-52.0); Hemoglobin 10.2 g/dL (14.0-18.0); Immature Granulocyte Absolute 0.08 K/mm3 (0.00-0.031); Lymphocytes Absolute Auto 0.76 K/mm3 (0.9-3.2); Lymphocytes Percent Auto 9.9 % (18.3-44.2); Mean Corpuscular HGB Conc 33.3 g/dl (32-36); Mean Corpuscular Hemoglobin 31.1 pg (26-34); Mean Corpuscular Volume 93.3 fl (80-100); Mean Platelet Volume 10.1 fl (7.4-10.4); Monocytes Absolute Auto 0.7 K/mm3 (0.1-0.6); Monocytes Percent Auto 9.7 % (2.6-8.5); Neutrophils Absolute Auto 5.9 K/mm3 (1.3-6.7); Neutrophils Percent Auto 76.8 % (45.5-73.1); Platelet Count Result 222 k/mm3 (150-375); Red Blood Count 3.28 M/mm3 (4.6-6.20); Red Cell Distribution Width 12.3 % (11.5-14.5); White Blood Count 7.7 K/mm3 (4.5-10.0)
[2023-11-25 07:00] LABS: Anion Gap 6 mmol/L (4-12); Blood Urea Nitrogen 17 mg/dL (9-20); Calcium 8.1 mg/dL (8.4-10.2); Carbon Dioxide 21 mmol/L (22-30); Chloride 107 mmol/L (98-107); Estimated CRCL calculation 56 ml/min; Estimated Glomerular Filt Rate 54; Glucose 93 mg/dL (65-110); Magnesium 2.1 mg/dL (1.6-2.3); Phosphorus 3.8 mg/dL (2.5-4.5); Potassium 4.1 mmol/L (3.4-5.0); Sodium 134 mmol/L (137-145)
[2023-11-25 07:36] LABS: Glucose Point of Care 93 mg/dl (65-105)
[2023-11-25 08:00] VITALS: PULSE 74; RESP 20; O2SAT 98
[2023-11-25] MEDS: CLOPIDOGREL BISULFATE 75 MG TABLET PO (09:11)
[2023-11-25] MEDS: SIMVASTATIN 20 MG TABLET PO (09:12)
[2023-11-25] MEDS: OMEGA 3 POLYUNSAT FATTY ACIDS 1 GM CAP PO (09:12)
[2023-11-25] MEDS: PANTOPRAZOLE 40 MG TABLET PO (09:12)
[2023-11-25] MEDS: GLIMEPIRIDE 2 MG TABLET PO (09:12)
[2023-11-25] MEDS: EZETIMIBE 10 MG TABLET PO (09:12)
[2023-11-25] MEDS: amLODIPine BESYLATE 5 MG TABLET PO (09:12)
[2023-11-25] MEDS: levoFLOXacin 750 MG/D5W 150 ML 750 MG/150 ML BAG 100 MG IVPB (09:15)
[2023-11-25] MEDS: ENOXAPARIN 40 MG/0.4 ML SYRINGE SUB-Q (09:15)
--- NOTE | 2023-11-25 10:14 | PM.IMPN ---
Subjective Date/time seen: 11/25/23 10:14 Objective Data Vital Signs Vital Signs: Vital Signs - 24 hr 11/24/23 14:00 11/24/23 22:00 11/25/23 06:00 Temperature 36.6 C 37.2 C 36.6 C Pulse Rate 53 L 62 74 Respiratory Rate 18 16 20 Blood Pressure 137/59 L 142/61 H 138/67 Pulse Oximetry 98 96 98 Intake/Output Intake/Output: Intake & Output 11/22/23 11/23/23 11/24/23 11/25/23 23:59 23:59 23:59 23:59 Intake Total 3050 2705.2 454 368 Output Total 1600 1800 2075 Balance 3050 1105.2 -8733 -6378 Meds/Results Medications: Active Medications Generic Name Dose Route Start Last Admin Trade Name Freq PRN Reason Stop Dose Admin Acetaminophen 650 mg 11/23/23 16:37 Acetaminophen 325 Mg Tablet PO Q4H PRN Pain 1-3 or Fever Hydrocodone Bitart/Acetaminophen 1 tab 11/22/23 21:39 Hydrocodone/Acetaminophen (*Crx) 5-325 Mg Tablet PO Q4H PRN Moderate Pain (4-6) Amlodipine Besylate 5 mg 11/24/23 09:00 11/25/23 09:12 Amlodipine Besylate 5 Mg Tablet PO 5 mg QAM NUNO Administration Clopidogrel Bisulfate 75 mg 11/24/23 09:00 11/25/23 09:11 Clopidogrel Bisulfate 75 Mg Tablet PO 75 mg QAM NUNO Administration Dextrose 12.5 gm 11/23/23 13:42 Dextrose 50% 25 Gm/50 Ml Syringe IV PUSH PRN PRN Hypoglycemia Protocol Ezetimibe 10 mg 11/24/23 09:00 11/25/23 09:12 Ezetimibe 10 Mg Tablet PO 10 mg QAM NUNO Administration Enoxaparin Sodium 40 mg 11/23/23 09:00 11/25/23 09:15 Enoxaparin 40 Mg/0.4 Ml Syringe SUB-Q 40 mg DAILY NUNO Administration Fish Oil 1 gm 11/24/23 09:00 11/25/23 09:12 [place] 3 Polyunsat Fatty Acids 1 Gm Cap PO 1 gm DAILY NUNO Administration Glimepiride 2 mg 11/24/23 08:00 11/25/23 09:12 Glimepiride 2 Mg Tablet PO 2 mg DAILY@0800 NUNO Administration Glucagon 1 mg 11/23/23 13:42 Glucagon For Inj 1 Mg Vial IM PRN PRN Hypoglycemia Protocol Glucose 15 gm 11/23/23 13:42 Glucose Oral Gel 15 Gm Of Glucse In 37.5 Gm Tube PO PRN PRN Hypoglycemia Protocol Dextrose 1,000 mls @ 100 mls/hr 11/23/23 13:42 Dextrose 5% 1,000 Ml IVPB PRN PRN Hypoglycemia Protocol Ceftriaxone Sodium 2 gm in 100 mls @ 200 mls/hr 11/23/23 21:00 11/24/23 20:35 Rocephin 2 Gm/Ns 100 Ml IVPB Infused Q24H NUNO Infusion Levofloxacin/Dextrose 750 mg in 150 mls @ 100 mls/hr 11/25/23 09:00 11/25/23 09:15 Levaquin 750 Mg/D5w 150 Ml IVPB 100 mls/hr Q24H NUNO Administration Insulin Aspart 2 - 5 units 11/23/23 17:00 11/25/23 09:11 Insulin Aspart (*Bkc) 100 Units/Ml SUB-Q Not Given [facility] Protocol Ondansetron HCl 4 mg 11/22/23 21:39 Ondansetron Inj 4 Mg/2 Ml Vial IV PUSH Q6H PRN Nausea And Vomiting Pantoprazole Sodium 40 mg 11/23/23 09:00 11/25/23 09:12 Pantoprazole 40 Mg Tablet PO 40 mg QAM NUNO Administration Simvastatin 20 mg 11/24/23 09:00 11/25/23 09:12 Simvastatin 20 Mg Tablet PO 20 mg DAILY NUNO Administration Radiology Results: ITS Impressions Chest X-Ray 11/22/23 17:52 IMPRESSION: 1. No acute cardiopulmonary disease. Abdomen/Pelvis CT 11/22/23 21:03 IMPRESSION: 1. Moderate bilateral perinephric stranding with additional stranding in the pelvis around the bladder, enlarged prostate and bilateral seminal vesicles suggestive of urinary tract infection with potential cystitis, prostatitis and/or pyelonephritis. 2. Cholelithiasis. Labs Labs: Laboratory Results - last 24 hr 11/24/23 11/24/23 11/24/23 11:24 16:45 19:48 WBC RBC Hgb Hct MCV MCH MCHC RDW Plt Count MPV Immature Gran % (Auto) Neut % (Auto) Lymph % (Auto) [place] % (Auto) Eos % (Auto) Baso % (Auto) Lymph # (Auto) [place] # (Auto) Eos # (Auto) Baso # (Auto) Abs Immat Gran (auto) Absolute Neuts (auto) Absolute Nucleated RBC Nucleated RBC %
[2023-11-25 11:39] LABS: Glucose Point of Care 243 mg/dl (65-105)
--- NOTE | 2023-11-25 12:29 | PM.DS ---
DS: Admitting Diagnosis Discharge Date 11/25/2023 Admitting Diagnosis Acute pyelonephritis, acute kidney injury, prostate cancer, elevated PSA DS: Discharge Diagnosis Discharge Diagnosis (1) Acute pyelonephritis: Code(s): N10 - Acute pyelonephritis Status: Acute (2) Bacteremia: Code(s): R78.81 - Bacteremia Status: Acute (3) Prostate cancer: Code(s): C61 - Malignant neoplasm of prostate Status: Acute (4) Acute kidney injury: Code(s): N17.9 - Acute kidney failure, unspecified Status: Acute (5) Type 2 diabetes mellitus: Code(s): E11.9 - Type 2 diabetes mellitus without complications Status: Acute (6) Hyponatremia: Code(s): E87.1 - Hypo-osmolality and hyponatremia Status: Acute DS: Summary Hospital Course Hospital Course: This is a 73-year-old male patient admitted through the emergency department with findings UTI, acute pyelonephritis and WILLIAM. Patient was started on IV Rocephin. The next day his blood cultures were positive for Gram-negative bacilli. Rocephin was increased to 2 g daily. Urine culture resulted E coli with susceptibility to ceftriaxone. This morning blood cultures showed same findings the initial planned discharge Augmentin was changed due to JUVENTINO of 8 for Augmentin. Ordered IV levofloxacin and will discharge on oral levofloxacin. Patient continued to beg for discharge today. Original plan was to wait until tomorrow for 48 hours of repeat blood culture negative prior to discharge. We decided to give Levaquin and Rocephin prior to discharge and send Rx for oral Levaquin. Patient declined recommended home health PT and OT. arrived at bedside and we discussed all decisions. is okay with taking him home today. They will contact primary care provider if he feels like he needs additional therapy but he is doing well today and feels back to baseline strength. Status at Discharge Cognitive/behavioral status at discharge: Awake alert oriented and pleasant Functional status at discharge: uses cane/walker Overall status at discharge: patient is progressing back to baseline Time Spent with Patient Time attestation: Total time spent providing and/or coordinating discharge services: 45 minutes Time spent: Greater than 30 minutes Specific discharge activities: Shared decision making regarding either remain admitted for 1 more day to assure repeat blood cultures negative verses discharge today on Levaquin oral after IV dose. Exam Narrative: General: Awake, alert, comfortable, no acute distress HEENT: Normocephalic, atraumatic, sclerae anicteric Respiratory: Normal respiratory effort, no accessory muscle use Abdomen: Nondistended, soft, nontender Skin: Normal coloration, warm and dry Neurologic: Left upper and lower extremity weakness which is chronic Psychiatric: Appropriate mood and affect, judgment and insight intact DS: Data Data Completed and Pending Completed studies during hospitalization: Chest x-ray, abdomen/pelvis CT Labs on day of discharge: Labs from last 24 hours 11/25/23 11/25/23 11/25/23 11:32 07:33 06:43 WBC 7.7 RBC 3.28 L Hgb 10.2 L Hct 30.6 L MCV 93.3 MCH 31.1 MCHC 33.3 RDW 12.3 Plt Count 222 MPV 10.1 Immature Gran % (Auto) 1.0 H Neut % (Auto) 76.8 H Lymph % (Auto) 9.9 L [place] % (Auto) 9.7 H Eos % (Auto) 2.2 Baso % (Auto) 0.4 Lymph # (Auto) 0.76 L [place] # (Auto) 0.7 H Eos # (Auto) 0.2 Baso # (Auto) 0.0 Abs Immat Gran (auto) 0.08 H Absolute Neuts (auto) 5.9 Absolute Nucleated RBC 0.000 Nucleated RBC % 0.0 Sodium 134 L Potassium 4.1 Chloride 107 Carbon Dioxide 21 L Anion Gap 6 BUN 17 Creatinine 1.30 Estim Creat Clear Calc 56 Estimated GFR 54 L Glucose 93 POC Capillary Glucose 243 H 93 Calcium 8.1 L Phosphorus 3.8 Magnesium 2.1 Albumin 3.0 L 11/24/23 11/24/23
[2023-11-25] MEDS: INSULIN ASPART (*BKC) 100 UNITS/ML SUB-Q (13:22)
[2023-11-25 14:00] VITALS: BP 142/70; PULSE 53; RESP 20; TEMP 36.4; O2SAT 98
[2023-11-25] MEDS: cefTRIAXone 2 GM/NS 100 ML 2 GM/100 ML BAG IVPB (15:25)
--- NOTE | 2023-11-25 15:26 | PC.NURSE ---
Rocephin infusing early per provider instructions prior to discharge.
[2023-11-25 16:25] LABS: Glucose Point of Care 179 mg/dl (65-105)
== END 2023-11-25 17:09 | disposition home or self-care (01) | DRG 690 ==
LOC: ANHED 20:18 → ANH3MEDSUR 11-23 04:33
PROVIDERS: Admitting Provider Internal Medicine; Emergency Provider Emergency Medicine; PCP Internal Medicine; Visit Provider Nurse Practitioner
DX: N10 Acute pyelonephritis (principal); R78.81 Bacteremia; E87.1 Hypo-osmolality and hyponatremia; N17.9 Acute kidney failure, unspecified; N18.9 Chronic kidney disease, unspecified; I12.9 Hypertensive chronic kidney disease with stage 1 through stage 4 chronic kidney disease, or unspecified chronic kidney disease; B96.20 Unspecified Escherichia coli [E. coli] as the cause of diseases classified elsewhere; C61 Malignant neoplasm of prostate; E11.22 Type 2 diabetes mellitus with diabetic chronic kidney disease; E78.5 Hyperlipidemia, unspecified; Z20.822 Contact with and (suspected) exposure to COVID-19; Z79.82 Long term (current) use of aspirin; Z79.02 Long term (current) use of antithrombotics/antiplatelets; Z87.891 Personal history of nicotine dependence; Z86.73 Personal history of transient ischemic attack (TIA), and cerebral infarction without residual deficits
CPT/HCPCS: 36415; 71045; 74176; 80053; 80069; 81003; 82948; 83036; 83605; 83735; 85025; 87040; 87077; 87086; 87088; 87186; 87637; 93005; 96365; 96366; 97110; 97116; 97161; 97165; 97530; 97535; 99285; A9270; G0378; J0696; J1650; J1815; J1956; J7030; J7120

== ENCOUNTER 2023-12-01 12:25 | Outpatient (CLI) | payer MEDICARE, SELFPAY ==
--- NOTE | ~2023-12-01 | PE_ITS ---
EXAMINATION: PET_PETPSMAST_PT DATE: 12/01/2023 15:07 INDICATION: Prostate cancer. TECHNIQUE: 5.107 mCi of Ga-68 gozetotide was administered intravenously. Low dose computed tomography (CT) images were acquired from the base of the brain to the proximal thighs for attenuation correcti on and anatomic localization. Automated exposure control was employed. Dose-length product (DLP) was 1195 mGy-cm. Positron emission tomography (PET) images were acquired in the same distribution. 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 There are no pathologically enlarged lymph nodes. Chest: A calcified left lung nodule and calcified left hilar and mediastinal lymph nodes are consiste nt with old granulomatous disease. No pleural effusion. The heart size is normal. There are coronary artery calcifications. No pericardial effusion. Abdomen/pelvis/proximal thighs: Calcifications in the liver and spleen are consistent with old granul omatous disease. There are gallstones in the gallbladder, which is normal in size. The pancreas, adre nal glands, and kidneys are normal. There is no urolithiasis. The prostate is moderately enlarged. Th ere is increased activity in the prostate bilaterally with maximum SUV of 4.8 on the left. There is d iverticulosis of the colon without evidence of diverticulitis. There are no dilated loops of bowel. T he appendix is normal. There are no pathologically enlarged lymph nodes. There is no free intraperito sheron fluid. There is no osseous malignancy. IMPRESSION: 1. Moderately enlarged prostate with increased activity, consistent with primary malignancy. No evide nce of metastatic disease. Reviewed, dictated and finalized at location A. IMPRESSION: 1. Moderately enlarged prostate with increased activity, consistent with primar y malignancy. No evidence of metastatic disease.
== END 2023-12-01 12:26 | disposition home or self-care (01) ==
PROVIDERS: PCP Internal Medicine Infectious Disease; Visit Provider Urology
DX: C61 Malignant neoplasm of prostate (principal); R97.20 Elevated prostate specific antigen [PSA]; R31.0 Gross hematuria; N40.0 Benign prostatic hyperplasia without lower urinary tract symptoms
CPT/HCPCS: 78815; A9596